=== PATIENT | female | born 1960 | race Caucasian/White ===

== ENCOUNTER 2017-08-02 07:12 | Emergency (ER) | payer OTHER ==
[~2017-08-02] VITALS: Ht 165.1 cm; Wt 61.2 kg
[2017-08-02] MEDS ORDERED: IV NS 0.9% 1,000 ML BAG IV ONE ×2 (07:30)
--- NOTE | 2017-08-02 07:35 | NUR ---
PT BRIB LAFD PT ALTERED, BREATHING LABORED/RAPID RR 30/DEEP, PT HAS DARK/DRY SUBSTANCE ON LIPS/MOUTH, SINUS TACH ON CRANKSHAFT STRAIGHTENER HR 102, SKIN COOL/DRY,
[2017-08-02 07:56] LABS: BASOPHILS % (AUTO) 0.2 % (0.0-2.0); HEMATOCRIT 36 % (33-45); HEMOGLOBIN 11.1 g/dL (11.5-14.8); LYMPHOCYTES % (AUTO) 5.5 % (20.0-44.0); MEAN CORPUSCULAR HEMOGLOBIN 28 PG (26.0-33.0); MEAN CORPUSCULAR HGB CONC 31 g/dl (31.0-36.0); MEAN CORPUSCULAR VOLUME 89 fL (82-100); MONOCYTES # (AUTO) 0.3 /CMM (0.1-1.30); MONOCYTES % (AUTO) 1.5 % (2.0-12.0); NEUTROPHILS # (AUTO) 17.4 /CMM (1.8-8.9); NEUTROPHILS % (AUTO) 92.8 % (43.0-81.0); PLATELET COUNT (AUTO) 587 /CMM (150-450); RED BLOOD CELL COUNT(AUTO) 4.02 MIL/uL (4.0-5.2); WHITE BLOOD COUNT (AUTO) 18.8 K/uL (4.3-11.0)
--- NOTE | 2017-08-02 08:02 | NUR ---
TIMBER CUTTER AT BEDSIDE
[2017-08-02 08:06] LABS: ABG BASE EXCESS -20.4 mmol/L; ABG OXYGEN SATURATION 58.6 % (92.0-98.5); ABG PCO2 24.3 mmHg (35.0-45.0); ABG PO2 40.5 mmHg (75.0-100.0); AaDO2 80.1 mmHg; COHb 0.6 % (0.5-1.5); MetHb 0.7 % (0.0-1.5); O2Hb 57.8 % (94.0-97.0); SITE, ABG LEFT ARM; VENT MODE, BG ROOM AIR VBG
[2017-08-02 08:09] LABS: ALANINE AMINOTRANSFERASE 10 U/L (12-78); ALBUMIN 2.1 g/dL (3.4-5.0); ALKALINE PHOSPHATASE 108 U/L (46-116); ASPARTATE AMINOTRANSFERASE 8 U/L (15-37); BILIRUBIN,DIRECT 0.1 mg/dL (0.0-0.2); BILIRUBIN,TOTAL 1.3 mg/dL (0.2-1.0); CHLORIDE 89 mmol/L (98-107); CREATININE 1.4 mg/dL (0.6-1.3); POTASSIUM 6.1 mmol/L (3.5-5.1); SODIUM SERUM 128 mmol/L (136-145); TOTAL PROTEIN, SERUM 6.3 g/dL (6.4-8.2); TROPONIN I 0.053 ng/mL (0.00-0.056); UREA NITROGEN, BLOOD 66 mg/dL (7-18)
[2017-08-02 08:15] LABS: CARBON DIOXIDE 8 mmol/L (21-32); GLUCOSE 690 mg/dL (74-106)
[2017-08-02 08:22] LABS: INR 1.14 (0.87-1.13); PROTHROMBIN TIME 11.9 SECS (9.5-12.7)
[2017-08-02 08:27] LABS: MAGNESIUM 1.5 mg/dL (1.8-2.4)
[2017-08-02] MEDS ORDERED: IV NS 0.9% 1,000 ML IV ONE (08:30)
[2017-08-02] MEDS ORDERED: PIPERACILLIN /TAZOBACTAM 3.375 G in IV D5W 50 ML IV ONE (08:30)
[2017-08-02] MEDS ORDERED: VANCOMYCIN 1 GM in IV D5W 250 ML IV ONE (08:30)
[2017-08-02] MEDS ORDERED: INSULIN REGULAR, HUMAN 100 UNIT in IV NS 0.9% 99 ML IV PRN ×2 (08:30)
--- NOTE | 2017-08-02 08:34 | NUR ---
[facility] [phone]
[2017-08-02] MEDS ORDERED: Magnesium 1GM/D5W 100ML PREMIX 100 ML IV ONE (08:55)
[2017-08-02] MEDS ORDERED: Magnesium 1GM/D5W 100ML PREMIX 100 ML IV SCH (09:00)
--- NOTE | 2017-08-02 09:12 | NUR ---
MELLISA FERRIS [phone]
--- NOTE | 2017-08-02 09:27 | NUR ---
CALL FROM [facility],FERNANDO PARISI, WITH TX INFO: GOING TO [facility], ICU 1117, ACCEPTED BY DR LANDRUM, REPORT TO [phone]
[2017-08-02 10:49] VITALS: BP 122/69
--- NOTE | 2017-08-02 11:26 | NUR ---
GAVE REPORT TO AUB[facility] ICU JAMES PC DR LANDRUM ADMITTING
[2017-08-02 11:33] LABS: CALCIUM, SERUM 9.4 mg/dL (8.5-10.1); CREATININE 1.3 mg/dL (0.6-1.3); POTASSIUM 4.8 mmol/L (3.5-5.1)
== END 2017-08-02 11:58 | disposition short-term general hospital (02) ==
LOC: ER 07:13
DX: A41.9 Sepsis, unspecified organism (principal); R65.20 Severe sepsis without septic shock; J18.9 Pneumonia, unspecified organism; E11.10 Type 2 diabetes mellitus with ketoacidosis without coma; E83.42 Hypomagnesemia; N28.9 Disorder of kidney and ureter, unspecified; E87.5 Hyperkalemia; Z79.4 Long term (current) use of insulin; Y95 Nosocomial condition
CPT/HCPCS: 36415; 36600; 71045-TC; 80048-TC; 80076-TC; 82962-TC; 83605-TC; 83735-TC; 84100-TC; 84484-TC; 85025-TC; 85730-TC; 87040-TC; 87400; A4606; J1815; J2543; J3370; J3475; J7030; J7060; Z7610